=== PATIENT | female | born 1945 | race Caucasian/White ===

== ENCOUNTER 2023-02-02 17:21 | Inpatient (IN) | payer MEDICARE ==
[~2023-02-02] VITALS: Ht 157.5 cm; Wt 51.3 kg
[2023-02-02] MEDS ORDERED: LOSA25TA3 PO (17:59)
[2023-02-02] MEDS ORDERED: ALOG12.5 PO (17:59)
[2023-02-02] MEDS ORDERED: ACET-2154 PO (17:59)
[2023-02-02] MEDS ORDERED: ACET125T3 PO (17:59)
[2023-02-02] MEDS ORDERED: LETR2.5T PO (17:59)
[2023-02-02] MEDS ORDERED: CARV3.122 PO (17:59)
[2023-02-02] MEDS ORDERED: LEVO50TA8 PO (17:59)
[2023-02-02] MEDS ORDERED: FLUP5TAB14 PO (17:59)
[2023-02-02] MEDS ORDERED: ATOR20TA PO (17:59)
[2023-02-02] MEDS ORDERED: ASPI81TA31 PO (17:59)
[2023-02-02] MEDS ORDERED: GABA-532 PO (17:59)
[2023-02-03] MEDS ORDERED: ACETAMINOPHEN 325 MG TABLET PO PRN (00:30)
[2023-02-03] MEDS ORDERED: MAG HYDROX/AL HYDROX/SIMETH 30 ML LIQUID UDC PO PRN (00:30)
[2023-02-03] MEDS ORDERED: BLOOD SUGAR DIAGNOSTIC 1 EACH STRIP VI ONE (00:30)
[2023-02-03 00:45] VITALS: BP 118/64; TEMP 98.1; O2SAT 93
[2023-02-03] MEDS: ACETAMINOPHEN 325 MG TABLET PO PRN (02:14)
[2023-02-03] MEDS: TEMAZEPAM 7.5 MG CAPSULE PO PRN (02:14)
[2023-02-03 08:00] VITALS: BP 112/76; TEMP 97.6; O2SAT 97
[2023-02-03] MEDS: ASPIRIN 81 MG TAB.CHEW PO SCH (08:43)
[2023-02-03] MEDS: ACETAzolamide 250 MG TABLET PO SCH (08:44)
[2023-02-03] MEDS: LEVOTHYROXINE SODIUM 50 MCG TABLET PO SCH (08:44)
[2023-02-03] MEDS: GABAPENTIN 100 MG CAPSULE PO SCH ×2 (08:44→17:00)
[2023-02-03] MEDS: CARVEDILOL 3.125 MG TABLET PO SCH ×2 (08:44→20:25)
[2023-02-03] MEDS: LOSARTAN POTASSIUM 25 MG TABLET PO SCH (08:44)
[2023-02-03] MEDS: LINAGLIPTIN 5 MG TABLET PO SCH (08:45)
[2023-02-03] MEDS ORDERED: LETROZOLE 2.5 MG PO SCH (09:00)
[2023-02-03] MEDS: TRIHEXYPHENIDYL HCL 2 MG TABLET PO SCH ×2 (12:45→20:25)
[2023-02-03] MEDS: FLUPHENAZINE HCL 5 MG TABLET PO SCH ×2 (12:46→20:25)
[2023-02-03 16:00] VITALS: BP 98/60; TEMP 97.2; O2SAT 97
[2023-02-03 20:15] VITALS: BP 111/68; TEMP 97.6; O2SAT 96
[2023-02-03] MEDS: ATORVASTATIN 20 MG TABLET PO SCH (20:25)
[2023-02-04 08:12] VITALS: BP 117/74; TEMP 98.2; O2SAT 99
[2023-02-04] MEDS: LOSARTAN POTASSIUM 25 MG TABLET PO SCH (09:00)
[2023-02-04] MEDS: GABAPENTIN 100 MG CAPSULE PO SCH ×2 (09:08→17:06)
[2023-02-04] MEDS: LINAGLIPTIN 5 MG TABLET PO SCH (09:08)
[2023-02-04] MEDS: LEVOTHYROXINE SODIUM 50 MCG TABLET PO SCH (09:08)
[2023-02-04] MEDS: ASPIRIN 81 MG TAB.CHEW PO SCH (09:08)
[2023-02-04] MEDS: ACETAzolamide 250 MG TABLET PO SCH (09:08)
[2023-02-04] MEDS: TRIHEXYPHENIDYL HCL 2 MG TABLET PO SCH ×2 (09:08→20:05)
[2023-02-04] MEDS: FLUPHENAZINE HCL 5 MG TABLET PO SCH ×2 (09:08→20:05)
[2023-02-04] MEDS: CARVEDILOL 3.125 MG TABLET PO SCH ×2 (09:09→20:05)
[2023-02-04 15:21] VITALS: BP 104/60; TEMP 98.2; O2SAT 96
[2023-02-04 20:03] VITALS: BP 111/66; TEMP 97.9; O2SAT 97
[2023-02-04] MEDS: ATORVASTATIN 20 MG TABLET PO SCH (20:04)
[2023-02-05 07:58] VITALS: BP 106/70; TEMP 98.2; O2SAT 96
[2023-02-05] MEDS: ASPIRIN 81 MG TAB.CHEW PO SCH (08:59)
[2023-02-05] MEDS: FLUPHENAZINE HCL 5 MG TABLET PO SCH ×2 (08:59→20:56)
[2023-02-05] MEDS: TRIHEXYPHENIDYL HCL 2 MG TABLET PO SCH ×2 (08:59→20:56)
[2023-02-05] MEDS: LINAGLIPTIN 5 MG TABLET PO SCH (08:59)
[2023-02-05] MEDS: ACETAzolamide 250 MG TABLET PO SCH (08:59)
[2023-02-05] MEDS: LEVOTHYROXINE SODIUM 50 MCG TABLET PO SCH (09:00)
[2023-02-05] MEDS: LOSARTAN POTASSIUM 25 MG TABLET PO SCH (09:00)
[2023-02-05] MEDS: CARVEDILOL 3.125 MG TABLET PO SCH ×2 (09:00→20:57)
[2023-02-05] MEDS: GABAPENTIN 100 MG CAPSULE PO SCH ×2 (09:00→17:11)
[2023-02-05 15:30] VITALS: BP 107/63; TEMP 98; O2SAT 98
[2023-02-05 19:55] VITALS: BP 112/70; TEMP 97.9; O2SAT 96
[2023-02-05] MEDS: ATORVASTATIN 20 MG TABLET PO SCH (20:57)
[2023-02-06] MEDS: LORAZEPAM 0.5 MG TABLET PO PRN ×2 (03:59→16:09)
[2023-02-06] MEDS: ACETAMINOPHEN 325 MG TABLET PO PRN (03:59)
[2023-02-06] MEDS: LEVOTHYROXINE SODIUM 50 MCG TABLET PO SCH (06:00)
[2023-02-06 08:10] VITALS: BP 126/57; TEMP 97.4; O2SAT 99
[2023-02-06] MEDS: FLUPHENAZINE HCL 5 MG TABLET PO SCH ×2 (08:27→20:03)
[2023-02-06] MEDS: GABAPENTIN 100 MG CAPSULE PO SCH ×2 (08:27→16:09)
[2023-02-06] MEDS: LINAGLIPTIN 5 MG TABLET PO SCH (08:27)
[2023-02-06] MEDS: ASPIRIN 81 MG TAB.CHEW PO SCH (08:27)
[2023-02-06] MEDS: ACETAzolamide 250 MG TABLET PO SCH (08:27)
[2023-02-06] MEDS: TRIHEXYPHENIDYL HCL 2 MG TABLET PO SCH ×2 (08:27→20:02)
[2023-02-06] MEDS: LETROZOLE 2.5 MG PO SCH (08:28)
[2023-02-06] MEDS: CARVEDILOL 3.125 MG TABLET PO SCH ×2 (08:28→20:03)
[2023-02-06] MEDS: LOSARTAN POTASSIUM 25 MG TABLET PO SCH (08:30)
[2023-02-06 16:03] VITALS: BP 95/53; TEMP 98; O2SAT 98
[2023-02-06 20:00] VITALS: BP 101/60; TEMP 98; O2SAT 95
[2023-02-06] MEDS: ATORVASTATIN 20 MG TABLET PO SCH (20:03)
[2023-02-06] MEDS: TEMAZEPAM 7.5 MG CAPSULE PO PRN (21:55)
[2023-02-07] MEDS: LEVOTHYROXINE SODIUM 50 MCG TABLET PO SCH (06:36)
[2023-02-07 08:00] VITALS: BP 107/54; TEMP 98; O2SAT 97
[2023-02-07] MEDS: TRIHEXYPHENIDYL HCL 2 MG TABLET PO SCH ×2 (08:30→21:15)
[2023-02-07] MEDS: GABAPENTIN 100 MG CAPSULE PO SCH ×2 (08:30→16:38)
[2023-02-07] MEDS: FLUPHENAZINE HCL 5 MG TABLET PO SCH ×2 (08:30→21:13)
[2023-02-07] MEDS: LOSARTAN POTASSIUM 25 MG TABLET PO SCH (08:30)
[2023-02-07] MEDS: ACETAzolamide 250 MG TABLET PO SCH (08:30)
[2023-02-07] MEDS: ASPIRIN 81 MG TAB.CHEW PO SCH (08:30)
[2023-02-07] MEDS: LINAGLIPTIN 5 MG TABLET PO SCH (08:30)
[2023-02-07] MEDS: LETROZOLE 2.5 MG PO SCH (08:31)
[2023-02-07] MEDS: CARVEDILOL 3.125 MG TABLET PO SCH ×2 (08:31→21:14)
[2023-02-07 16:08] VITALS: BP 109/61; TEMP 98.1; O2SAT 97
[2023-02-07 19:56] VITALS: BP 112/60; TEMP 97.9; O2SAT 96
[2023-02-07] MEDS: LORAZEPAM 0.5 MG TABLET PO PRN (20:12)
[2023-02-07] MEDS: ATORVASTATIN 20 MG TABLET PO SCH (21:14)
[2023-02-08] MEDS: LEVOTHYROXINE SODIUM 50 MCG TABLET PO SCH (06:33)
[2023-02-08 07:48] VITALS: BP 118/67; TEMP 98.3; O2SAT 97
[2023-02-08] MEDS: ASPIRIN 81 MG TAB.CHEW PO SCH (08:22)
[2023-02-08] MEDS: TRIHEXYPHENIDYL HCL 2 MG TABLET PO SCH ×2 (08:23→20:48)
[2023-02-08] MEDS: ACETAzolamide 250 MG TABLET PO SCH (08:23)
[2023-02-08] MEDS: GABAPENTIN 100 MG CAPSULE PO SCH ×2 (08:23→16:26)
[2023-02-08] MEDS: FLUPHENAZINE HCL 5 MG TABLET PO SCH ×2 (08:23→20:46)
[2023-02-08] MEDS: LINAGLIPTIN 5 MG TABLET PO SCH (08:23)
[2023-02-08] MEDS: LOSARTAN POTASSIUM 25 MG TABLET PO SCH (08:23)
[2023-02-08] MEDS: LETROZOLE 2.5 MG PO SCH (08:24)
[2023-02-08] MEDS: CARVEDILOL 3.125 MG TABLET PO SCH ×2 (08:24→20:46)
[2023-02-08 16:05] VITALS: BP 104/63; TEMP 98; O2SAT 97
[2023-02-08 19:48] VITALS: BP 101/52; TEMP 97.9; O2SAT 95
[2023-02-08 20:43] VITALS: BP 120/71
[2023-02-08] MEDS: ATORVASTATIN 20 MG TABLET PO SCH (20:45)
[2023-02-08] MEDS: MAGNESIUM HYDROXIDE 30 ML LIQUID UDC PO PRN (22:28)
[2023-02-09 08:43] VITALS: BP 119/75; TEMP 98; O2SAT 96
[2023-02-09] MEDS: LINAGLIPTIN 5 MG TABLET PO SCH (08:51)
[2023-02-09] MEDS: GABAPENTIN 100 MG CAPSULE PO SCH ×2 (08:51→16:44)
[2023-02-09] MEDS: ASPIRIN 81 MG TAB.CHEW PO SCH (08:51)
[2023-02-09] MEDS: LEVOTHYROXINE SODIUM 50 MCG TABLET PO SCH (08:51)
[2023-02-09] MEDS: TRIHEXYPHENIDYL HCL 2 MG TABLET PO SCH ×2 (08:51→20:11)
[2023-02-09] MEDS: CARVEDILOL 3.125 MG TABLET PO SCH ×2 (08:52→20:15)
[2023-02-09] MEDS: LOSARTAN POTASSIUM 25 MG TABLET PO SCH (08:52)
[2023-02-09] MEDS: FLUPHENAZINE HCL 5 MG TABLET PO SCH ×2 (08:54→20:12)
[2023-02-09] MEDS: LETROZOLE 2.5 MG PO SCH (08:58)
[2023-02-09] MEDS: ACETAzolamide 250 MG TABLET PO SCH (08:58)
[2023-02-09] MEDS: GLUCERNA SHAKE 237 ML CAN PO SCH (09:00)
[2023-02-09 15:29] VITALS: BP 92/58; TEMP 98; O2SAT 97
[2023-02-09 19:48] VITALS: BP 102/61; TEMP 98.1; O2SAT 95
[2023-02-09] MEDS: ATORVASTATIN 20 MG TABLET PO SCH (20:11)
[2023-02-10] MEDS: ACETAMINOPHEN 325 MG TABLET PO PRN (06:09)
[2023-02-10] MEDS: LEVOTHYROXINE SODIUM 50 MCG TABLET PO SCH (06:09)
[2023-02-10 08:01] VITALS: BP 121/58; TEMP 98.2; O2SAT 99
[2023-02-10] MEDS: GABAPENTIN 100 MG CAPSULE PO SCH ×2 (08:11→16:44)
[2023-02-10 08:12] LABS: BASOPHILS # (AUTO) 0.1 K/UL (0.0-0.2); BASOPHILS % (AUTO) 1.2 % (0.0-2.0); EOSINOPHILS # (AUTO) 0.2 K/uL (0.0-0.7); EOSINOPHILS % (AUTO) 3.5 % (0.0-7.0); HEMATOCRIT 36.6 % (31.2-41.9); LYMPHOCYTES # (AUTO) 1.4 K/uL (0.8-4.8); LYMPHOCYTES % (AUTO) 28.2 % (20.5-51.5); MEAN CORPUSCULAR HEMOGLOBIN 31.5 uug (24.7-32.8); MEAN CORPUSCULAR HGB CONC 33 g/dL (32.3-35.6); MEAN CORPUSCULAR VOLUME 95.7 fL (75.5-95.3); MONOCYTES # (AUTO) 0.5 K/uL (0.1-1.30); MONOCYTES % (AUTO) 10.3 % (0.0-11.0); NEUTROPHILS # (AUTO) 2.9 K/uL (1.8-8.9); NEUTROPHILS % (AUTO) 56.8 % (38.5-71.5); PLATELET COUNT (AUTO) 203 K/uL (179-408); RED BLOOD CELL COUNT(AUTO) 3.83 MIL/uL (3.63-4.92); RED CELL DISTRIBUTION WIDTH 14.6 % (12.3-17.7); WHITE BLOOD COUNT (AUTO) 5.1 K/uL (3.8-11.8)
[2023-02-10] MEDS: ASPIRIN 81 MG TAB.CHEW PO SCH (08:12)
[2023-02-10] MEDS: LINAGLIPTIN 5 MG TABLET PO SCH (08:12)
[2023-02-10] MEDS: LOSARTAN POTASSIUM 25 MG TABLET PO SCH (08:12)
[2023-02-10] MEDS: TRIHEXYPHENIDYL HCL 2 MG TABLET PO SCH ×2 (08:12→20:29)
[2023-02-10] MEDS: ACETAzolamide 250 MG TABLET PO SCH (08:13)
[2023-02-10] MEDS: MIRALAX 17 GM POWD.PACK PO SCH (08:13)
[2023-02-10] MEDS: LETROZOLE 2.5 MG PO SCH (08:13)
[2023-02-10] MEDS: FLUPHENAZINE HCL 5 MG TABLET PO SCH ×2 (08:13→20:29)
[2023-02-10 08:15] LABS: DIFFERENTIAL COMMENT 1
[2023-02-10] MEDS: GLUCERNA SHAKE 237 ML CAN PO SCH (08:34)
[2023-02-10 09:45] LABS: BILIRUBIN,DIRECT 0.1 mg/dL (0.0-0.2); BILIRUBIN,TOTAL 0.4 mg/dL (0.2-1.0); CALCIUM 9.2 mg/dL (8.5-10.1); CREATININE 0.8 mg/dL (0.6-1.3); MAGNESIUM 2.1 mg/dL (1.8-2.4); POTASSIUM 3.9 mmol/L (3.5-5.1); TOTAL PROTEIN, SERUM 6.5 g/dL (6.4-8.2)
[2023-02-10 15:12] VITALS: BP 109/64; TEMP 98.6; O2SAT 96
[2023-02-10 20:00] VITALS: BP 106/44; TEMP 98.1; O2SAT 95
[2023-02-10] MEDS: ATORVASTATIN 20 MG TABLET PO SCH (20:29)
[2023-02-10] MEDS: MAGNESIUM HYDROXIDE 30 ML LIQUID UDC PO PRN (20:30)
[2023-02-11] MEDS: LORAZEPAM 0.5 MG TABLET PO PRN (04:06)
[2023-02-11] MEDS: LEVOTHYROXINE SODIUM 75 MCG TABLET PO SCH (06:29)
[2023-02-11 07:30] VITALS: BP 143/77; TEMP 98; O2SAT 100
[2023-02-11] MEDS: FLUPHENAZINE HCL 5 MG TABLET PO SCH ×2 (09:04→19:59)
[2023-02-11] MEDS: LOSARTAN POTASSIUM 25 MG TABLET PO SCH (09:04)
[2023-02-11] MEDS: ASPIRIN 81 MG TAB.CHEW PO SCH (09:04)
[2023-02-11] MEDS: TRIHEXYPHENIDYL HCL 2 MG TABLET PO SCH ×2 (09:04→19:58)
[2023-02-11] MEDS: LINAGLIPTIN 5 MG TABLET PO SCH (09:04)
[2023-02-11] MEDS: MIRALAX 17 GM POWD.PACK PO SCH (09:05)
[2023-02-11] MEDS: GABAPENTIN 100 MG CAPSULE PO SCH ×2 (09:05→16:06)
[2023-02-11] MEDS: GLUCERNA SHAKE 237 ML CAN PO SCH (09:06)
[2023-02-11] MEDS: LETROZOLE 2.5 MG PO SCH (09:07)
[2023-02-11] MEDS: ACETAzolamide 250 MG TABLET PO SCH (09:07)
[2023-02-11] MEDS ORDERED: MIRALAX 17 GM POWD.PACK PO PRN (12:30)
[2023-02-11 15:05] VITALS: BP 118/69; TEMP 98.2; O2SAT 96
[2023-02-11] MEDS: ATORVASTATIN 20 MG TABLET PO SCH (19:58)
[2023-02-11 20:00] VITALS: BP 131/66; TEMP 97.8; O2SAT 96
[2023-02-11] MEDS: TEMAZEPAM 7.5 MG CAPSULE PO PRN (21:56)
[2023-02-11] MEDS: DOCUSATE SODIUM 100 MG CAPSULE PO SCH (21:57)
[2023-02-12] MEDS: LEVOTHYROXINE SODIUM 75 MCG TABLET PO SCH (06:34)
[2023-02-12 08:08] VITALS: BP 142/76; TEMP 98; O2SAT 99
[2023-02-12] MEDS: FLUPHENAZINE HCL 5 MG TABLET PO SCH ×2 (09:06→20:25)
[2023-02-12] MEDS: ASPIRIN 81 MG TAB.CHEW PO SCH (09:06)
[2023-02-12] MEDS: GABAPENTIN 100 MG CAPSULE PO SCH ×2 (09:07→17:07)
[2023-02-12] MEDS: LOSARTAN POTASSIUM 25 MG TABLET PO SCH (09:07)
[2023-02-12] MEDS: LINAGLIPTIN 5 MG TABLET PO SCH (09:07)
[2023-02-12] MEDS: ACETAzolamide 250 MG TABLET PO SCH (09:07)
[2023-02-12] MEDS: GLUCERNA SHAKE 237 ML CAN PO SCH (09:08)
[2023-02-12] MEDS: LETROZOLE 2.5 MG PO SCH (09:08)
[2023-02-12] MEDS: TRIHEXYPHENIDYL HCL 2 MG TABLET PO SCH ×2 (09:09→20:25)
[2023-02-12 15:21] VITALS: BP 111/69; TEMP 98.8; O2SAT 95
[2023-02-12 20:00] VITALS: BP 129/68; TEMP 97.8; O2SAT 97
[2023-02-12] MEDS: ATORVASTATIN 20 MG TABLET PO SCH (20:25)
[2023-02-12] MEDS: LORAZEPAM 0.5 MG TABLET PO PRN (20:25)
[2023-02-12] MEDS: DOCUSATE SODIUM 100 MG CAPSULE PO SCH (20:29)
[2023-02-13] MEDS: TEMAZEPAM 7.5 MG CAPSULE PO PRN ×2 (00:18→23:50)
[2023-02-13] MEDS: ACETAMINOPHEN 325 MG TABLET PO PRN (06:14)
[2023-02-13] MEDS: LEVOTHYROXINE SODIUM 75 MCG TABLET PO SCH (06:14)
[2023-02-13 08:03] VITALS: BP 118/70; TEMP 97.6; O2SAT 96
[2023-02-13] MEDS: FLUPHENAZINE HCL 5 MG TABLET PO SCH ×2 (08:28→20:39)
[2023-02-13] MEDS: GABAPENTIN 100 MG CAPSULE PO SCH ×2 (08:28→17:23)
[2023-02-13] MEDS: LINAGLIPTIN 5 MG TABLET PO SCH (08:28)
[2023-02-13] MEDS: ASPIRIN 81 MG TAB.CHEW PO SCH (08:28)
[2023-02-13] MEDS: TRIHEXYPHENIDYL HCL 2 MG TABLET PO SCH ×2 (08:28→20:39)
[2023-02-13] MEDS: LOSARTAN POTASSIUM 25 MG TABLET PO SCH (08:29)
[2023-02-13] MEDS: ACETAzolamide 250 MG TABLET PO SCH (08:30)
[2023-02-13] MEDS: LETROZOLE 2.5 MG PO SCH (08:30)
[2023-02-13] MEDS: GLUCERNA SHAKE 237 ML CAN PO SCH (08:31)
[2023-02-13 16:04] VITALS: BP 117/64; TEMP 98; O2SAT 97
[2023-02-13 19:30] VITALS: BP 144/70; TEMP 98; O2SAT 96
[2023-02-13] MEDS: DOCUSATE SODIUM 100 MG CAPSULE PO SCH (20:39)
[2023-02-13] MEDS: ATORVASTATIN 20 MG TABLET PO SCH (20:39)
[2023-02-14] MEDS: LEVOTHYROXINE SODIUM 75 MCG TABLET PO SCH (07:20)
[2023-02-14 07:48] VITALS: BP 127/67; TEMP 98; O2SAT 99
[2023-02-14] MEDS: TRIHEXYPHENIDYL HCL 2 MG TABLET PO SCH ×2 (08:39→20:08)
[2023-02-14] MEDS: ASPIRIN 81 MG TAB.CHEW PO SCH (08:39)
[2023-02-14] MEDS: LINAGLIPTIN 5 MG TABLET PO SCH (08:40)
[2023-02-14] MEDS: GABAPENTIN 100 MG CAPSULE PO SCH ×2 (08:40→17:39)
[2023-02-14] MEDS: FLUPHENAZINE HCL 5 MG TABLET PO SCH ×2 (08:40→20:08)
[2023-02-14] MEDS: LOSARTAN POTASSIUM 25 MG TABLET PO SCH (08:40)
[2023-02-14] MEDS: ACETAzolamide 250 MG TABLET PO SCH (08:40)
[2023-02-14] MEDS: LETROZOLE 2.5 MG PO SCH (08:40)
[2023-02-14] MEDS: GLUCERNA SHAKE 237 ML CAN PO SCH (08:44)
[2023-02-14 15:20] VITALS: BP 90/49; TEMP 98; O2SAT 96
[2023-02-14 19:53] VITALS: BP 106/52; TEMP 97.8; O2SAT 96
[2023-02-14] MEDS: LORAZEPAM 0.5 MG TABLET PO PRN (20:08)
[2023-02-14] MEDS: DOCUSATE SODIUM 100 MG CAPSULE PO SCH (20:08)
[2023-02-14] MEDS: ATORVASTATIN 20 MG TABLET PO SCH (20:08)
[2023-02-14 20:40] LABS: *BILIRUBIN,URIN NEGATIVE (NEGATIVE); *BLOOD, URINE NEGATIVE (NEGATIVE); *CLARITY,URINE CLEAR (CLEAR); *COLOR,URINE YELLOW (YELLOW); *KETONES,URINE NEGATIVE (NEGATIVE); *PROTEIN,URINE NEGATIVE (NEGATIVE); *UROBILINOGEN,URINE 0.2 E.U./dl (NORMAL); LEUKOCYTE ESTERASE ,URINE NEGATIVE (NEGATIVE); NITRITE, URINE NEGATIVE (NEGATIVE); UGLUCOSE NEGATIVE (NEGATIVE)
[2023-02-15] MEDS: LEVOTHYROXINE SODIUM 75 MCG TABLET PO SCH (06:03)
[2023-02-15] MEDS: ACETAMINOPHEN 325 MG TABLET PO PRN ×2 (06:15→22:28)
[2023-02-15 08:00] VITALS: BP 103/58; TEMP 97.6; O2SAT 97
[2023-02-15] MEDS: FLUPHENAZINE HCL 5 MG TABLET PO SCH ×2 (08:26→20:22)
[2023-02-15] MEDS: LOSARTAN POTASSIUM 25 MG TABLET PO SCH (08:26)
[2023-02-15] MEDS: GABAPENTIN 100 MG CAPSULE PO SCH ×2 (08:26→16:27)
[2023-02-15] MEDS: ACETAzolamide 250 MG TABLET PO SCH (08:26)
[2023-02-15] MEDS: LINAGLIPTIN 5 MG TABLET PO SCH (08:26)
[2023-02-15] MEDS: TRIHEXYPHENIDYL HCL 2 MG TABLET PO SCH ×2 (08:26→20:21)
[2023-02-15] MEDS: ASPIRIN 81 MG TAB.CHEW PO SCH (08:26)
[2023-02-15] MEDS: GLUCERNA SHAKE 237 ML CAN PO SCH (08:28)
[2023-02-15] MEDS: LETROZOLE 2.5 MG PO SCH (08:28)
[2023-02-15 14:31] LABS: CARBON DIOXIDE 27 mmol/L (21-32); CHLORIDE 108 mmol/L (98-107); CREATININE 0.7 mg/dL (0.6-1.3); GLUCOSE 141 mg/dL (74-106); POTASSIUM 3.6 mmol/L (3.5-5.1); SODIUM SERUM 142 mmol/L (136-145); UREA NITROGEN, BLOOD 27 mg/dL (7-18)
[2023-02-15 16:00] VITALS: BP 105/57; TEMP 97.8; O2SAT 98
[2023-02-15 19:45] VITALS: BP 120/52; TEMP 97.9; O2SAT 95
[2023-02-15] MEDS: ATORVASTATIN 20 MG TABLET PO SCH (20:21)
[2023-02-15] MEDS: DOCUSATE SODIUM 100 MG CAPSULE PO SCH (20:22)
[2023-02-16] MEDS: LEVOTHYROXINE SODIUM 75 MCG TABLET PO SCH (06:17)
[2023-02-16 08:18] VITALS: BP 126/68; TEMP 97.8; O2SAT 97
[2023-02-16] MEDS: ASPIRIN 81 MG TAB.CHEW PO SCH (08:35)
[2023-02-16] MEDS: ACETAzolamide 250 MG TABLET PO SCH (08:35)
[2023-02-16] MEDS: LINAGLIPTIN 5 MG TABLET PO SCH (08:35)
[2023-02-16] MEDS: GABAPENTIN 100 MG CAPSULE PO SCH (08:35)
[2023-02-16] MEDS: TRIHEXYPHENIDYL HCL 2 MG TABLET PO SCH (08:35)
[2023-02-16 08:36] VITALS: BP 126/68
[2023-02-16] MEDS: LETROZOLE 2.5 MG PO SCH (08:36)
[2023-02-16] MEDS: LOSARTAN POTASSIUM 25 MG TABLET PO SCH (08:36)
[2023-02-16] MEDS: GLUCERNA SHAKE 237 ML CAN PO SCH (08:37)
[2023-02-16] MEDS: FLUPHENAZINE HCL 5 MG TABLET PO SCH (08:46)
== END 2023-02-16 11:30 | DRG 885 ==
LOC: ER 17:27 → GPS 17:40
PROVIDERS: ADMIT Psychiatry & Neurology Psychosomatic Medicine; ATTEND Nurse Practitioner Acute Care
DX: F20.9 Schizophrenia, unspecified (principal); E44.0 Moderate protein-calorie malnutrition; E78.5 Hyperlipidemia, unspecified; E11.9 Type 2 diabetes mellitus without complications; R29.6 Repeated falls; F41.9 Anxiety disorder, unspecified; R41.9 Unspecified symptoms and signs involving cognitive functions and awareness; F32.A Depression, unspecified; E88.09 Other disorders of plasma-protein metabolism, not elsewhere classified; E03.9 Hypothyroidism, unspecified; R62.7 Adult failure to thrive; I10 Essential (primary) hypertension; G89.29 Other chronic pain; M54.2 Cervicalgia; K59.00 Constipation, unspecified; Z79.899 Other long term (current) drug therapy; Z85.3 Personal history of malignant neoplasm of breast; Z79.890 Hormone replacement therapy; Z88.0 Allergy status to penicillin; Z79.82 Long term (current) use of aspirin
CPT/HCPCS: 36415; 83735; 84443; 85025; A4663; J8499